=== PATIENT | female | born 1990 | race Caucasian/White ===

== ENCOUNTER 2023-08-17 15:18 | Outpatient (OUT) | payer BC, SELFPAY | END 2023-08-17 15:19 | disposition home or self-care (01) | LOC: LAB 15:24 | PROVIDERS: PCP Preventive Medicine Occupational Medicine; Visit Provider Otolaryngology | DX: J31.2 Chronic pharyngitis (principal) | CPT/HCPCS: 87070; 87150; 87186 ==